=== PATIENT | female | born 1930 | race Caucasian/White ===

== ENCOUNTER 2018-04-22 13:35 | Observation (INO) ==
--- NOTE | 2018-04-22 13:52 | ERNOTE ---
Neuro HPI ER Record Presenting Symptoms: confusion Time Seen by Provider: 04/22/18 13:38 Source: patient, EMS Exam Limitations: no limitations Immunizations: IMMUNIZATION HX Immunizations Up to Date Yes History of Influenza Vaccine More Information Required Hx Pneumococcal Vaccination No Allergies/Adverse Reactions: Allergies Allergy/AdvReac Type Severity Reaction Status Date / Time Tetracyclines Allergy Unknown Verified 03/27/18 09:56 Home Medications: HOME MEDICATIONS Calcium Carbonate/Vitamin D3 [Calcium 600 + D Tablet] 1 ea PO DAILY 10/08/14 [Last Taken Unknown] Glimepiride [Amaryl] 2 mg PO BID 10/08/14 [Last Taken Unknown] Ferrous Sulfate [Iron] 325 mg PO DAILY 07/12/17 [Last Taken Unknown] Warfarin Sodium [Coumadin] 3 mg PO DAILY 07/12/17 [Last Taken Unknown] metformin 850 mg tablet 850 mg PO BID #180 tab 12/06/17 [Last Taken Unknown] Clonidine HCl [Catapres] 0.1 mg PO PRN PRN 12/15/17 [Last Taken Unknown] Diltiazem HCl [Diltiazem 12Hr ER] 120 mg PO DAILY 12/15/17 [Last Taken Unknown] lisinopril 20 mg tablet 20 mg PO DAILY 45 Days #45 tab 01/24/18 [Last Taken Unknown] aspirin 81 mg tablet,delayed release 81 mg PO DAILY 01/31/18 [Last Taken Unknown] metoprolol tartrate 50 mg tablet 50 mg PO BID 01/31/18 [Last Taken Unknown] levothyroxine 50 mcg capsule 50 mcg PO DAILY #90 cap 02/08/18 [Last Taken Unknown] rosuvastatin 5 mg tablet 5 mg PO DAILY 03/27/18 [Last Taken Unknown] alcohol swabs 1 pad TP DAILY #100 ea 03/28/18 [Last Taken Unknown] Blood Sugar Diagnostic [True Metrix Glucose Test Strip] 0 appl .ROUTE .MEDSUPPLY 04/22/18 [Last Taken Unknown] Blood-Glucose Meter [Blood Glucose Meter] 0 appl .ROUTE .MEDSUPPLY 04/22/18 [Last Taken Unknown] Lancets [Unilet Lancet] 0 appl .ROUTE .MEDSUPPLY 04/22/18 [Last Taken Unknown] - History of Present Illness Narrative: Patient is not quite certain how the life alert was triggered at her home, but EMS services showed up and found the patient to be confused. Patient is alert only to self and is not exactly clear on time, situation, although she does appear to understand that she is in the hospital. Onset: other - Unknown time of onset Severity: moderate - Character of Deficits New weakness: Absent: general (diffuse) Altered sensation: Absent: RUE, RLE, LUE, LLE, facial (rt), facial (lt) Additional Deficits: Absent: vision problems Baseline Cognition: Present: alert, oriented x 4 Baseline Gait: Present: walks w/o assistance Associated Symptoms: Denies: fever/chills, sweating Review of Systems - Review of Systems Constitutional: Present: See HPI EYE: Present: no symptoms reported ENT: Present: no symptoms reported Respiratory: Present: no symptoms reported Cardiology: Present: no symptoms reported Gastrointestinal/Abdominal: Present: no symptoms reported Genitourinary: Present: no symptoms reported Musculoskeletal: Present: no symptoms reported Skin: Present: no symptoms reported Neurological: Present: no symptoms reported Endocrine: Present: no symptoms reported Hematologic/Lymphatic: Present: no symptoms reported Psych: Present: no symptoms reported Medical History (Last Reviewed 04/22/18 @ 13:39 by Lakshmi Ferrer RN) Visual loss (Acute) Onset Date: ~04/11/12 Osteoporosis (Chronic) Onset Date: Unknown 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 Hypercholesterolemia (Acute) Onset Date: Unknown CAD (coronary artery disease) (Chronic) Onset Date: Unknown HX: intermediate accountant anticoagulant use (Acute) Onset Date: Unknown Hx of abdominal aortic aneurysm (Resolved) Onset Date: Unknown Hyperlipidemia (Chronic) Onset Date: Unknown Hypertension (Chronic) Onset Date: Unknown Diabetes (Chronic) Onset Date: Unknown Hypothyroidism Onset Date: Unknown Surgical History: Surgical History (Last Reviewed 04/22/18 @ 13:39 by Lakshmi Ferrer RN) History of angioplasty Onset Date: ~1980 History of cataract surgery Onset Date: ~2001 History of left breast biopsy Onset Date: Unknown History of total abdominal hysterectomy and bilateral salpingo-oophorectomy Onset Date: Unknown Hx of aortic aneurysm repair Onset Date: Unknown Hx of heart artery stent Onset Date: Unknown Pacemaker Onset Date: ~11/25/15 Family History: Family History (Last Reviewed 04/22/18 @ 13:39 by Lakshmi Ferrer RN) Mother AAA (abdominal aortic aneurysm) Social History: Preferred Language Gabonese Smoking Status Never smoker Abuse History No History of abuse Psych History No pertinent hx Alcohol Use none Drug Use none (Last Updated 03/27/18 @ 12:40 by Sonia Coffey MD) No Social History Section defined Physical Exam - Physical Exam General Appearance: Present: wd/wn, no apparent distress Head Exam: Present: normal inspection, no evidence of injury Eye Exam: Normal inspection: bilateral, PERRL: bilateral Ears, Nose, Throat: Present: normal ENT inspection, H, normal pharynx Neck: Present: normal inspection, nontender Respiratory: Present: no respiratory distress, normal breath sounds, no accessory muscle use, chest nontender, lungs clear Cardiovascular/Chest: Present: regular rate, rhythm, no murmur, normal peripheral pulses Gastrointestinal/Abdominal: Present: normal bowel sounds, nontender, nondistended, soft, no organomegaly Rectal Exam: Present: deferred Pelvic Exam: Present: deferred Back Exam: Present: normal inspection, normal range of motion Extremity Exam: Present: normal inspection, non-tender, no edema, normal range of motion Neurological Exam: Present: alert, normal mood/affect, disoriented to time, disoriented to situation. Absent: disoriented to person Skin Exam: Present: normal color, warm/dry Lymphatic Exam: Present: no adenopathy Progress - Results and Orders Patient's Lab Results:: I have reviewed the patient's lab results. - Vital Signs Patient's Vital Signs:: I have reviewed the patient's vital signs. Vital Signs: Vital Signs 04/22/18 13:37 Temperature 36.9 C Pulse Rate 71 Respiratory Rate 17 O2 Sat by Pulse Oximetry 97 - X-Ray X-Ray #1 X-Ray: chest Interpretation: Reviewed by me - CT/Ultrasound CT/Ultrasound Narrative: CT of the head reviewed by me - Progress/Reassessment Chief Complaint: Altered Mental Status Plan - Plan Plan: Unclear etiology for this altered mental status. It is possible that she inadvertently overdosed on her own home medications as an entire day is missing from her pillbox. Patient will be admitted to an observation bed where at least we can do an echocardiogram and carotid Doppler ultrasounds and allow these medications to wash out of her system. Departure Clinical Impression: Altered mental status Qualifiers: Altered mental status type: disorientation Qualified Code(s): R41.0 - Disorientation, unspecified CVA (cerebral vascular accident) Qualifiers: CVA mechanism: unspecified Qualified Code(s): I63.9 - Cerebral infarction, unspecified - Departure Disposition: Still a patient Condition: Fair Referrals: Sonia Coffey MD [Primary Care Provider] -
[2018-04-22 13:58] LABS: Hematocrit 34.8 % (37.0-47.0); Hemoglobin 11.6 gm/dL (12.5-16.0); Mean Cell Volume 92.6 fl (78-100); Mean Corpuscular Hemoglobin 30.9 pg (27-31); Mean Corpuscular Hgb Conc 33.3 g/dl (32-36); Mean Platelet Volume 9.1 fl (8-12.5); Neutrophil # 6.5 K/mm3 (1.3-6.0); Platelet Count 240 K/mm3 (150-450); Red Blood Count 3.76 M/mm3 (4.2-5.4); Red Cell Distribution Width 15.1 % (11.5-14.0); White Blood Count 8.1 K/mm3 (4.0-10.5)
[2018-04-22 13:59] LABS: Urine Bilirubin Negative (NEGATIVE); Urine Ketone Negative (NEGATIVE); Urine Nitrite Negative (NEGATIVE); Urine Protein 30 mg/dL (NEGATIVE); Urine Specific Gravity 1.025 SP.GR. (1.005-1.010); Urine Urobilinogen Normal (NORMAL); Urine pH 5.5 pH (5.0-7.0)
[2018-04-22 14:07] LABS: Urine Amorphous Sediment Few - 1+ (NONE-FEW); Urine Appearance Clear (CLEAR); Urine Bacteria TRACE; Urine Blood 5 /ul (NEGATIVE); Urine Color Yellow; Urine RBC 0-5 /hpf (0-5); Urine WBC None Seen /hpf (0-5)
[2018-04-22 14:10] LABS: INR 2.59 INR (0.90-1.10); Prothrombin Time (Patient) 26.1 Seconds (9.0-11.0)
[2018-04-22 14:12] LABS: Albumin * 3.7 gm/dl (3.4-5.0); Anion Gap 16.4 mmol/L (6.8-13.8); BUN/Creatinine Ratio 32.9 (9.0-21.6); Bilirubin, Total 0.5 mg/dL (0.0-1.1); Ca. Corrected For Albumin 9.5 mg/dL (8.4-10.2); Calcium * 9.6 mg/dL (7.9-10.9); Carbon Dioxide 25.4 mmol/L (24-32.6); Magnesium 1.4 mg/dL (1.2-2.8); Potassium 3.8 mmol/L (3.4-4.6)
[2018-04-22] MEDS ORDERED: CLONIDINE HCL 0.1 MG TABLET PO PRN (21:14)
[2018-04-22] MEDS: METOPROLOL TARTRATE 50 MG TABLET PO SCH (22:12)
[2018-04-22] MEDS: FERROUS SULFATE 325 MG TABLET PO SCH (23:44)
[2018-04-23 05:32] LABS: Hematocrit 35.9 % (37.0-47.0); Mean Cell Volume 92.3 fl (78-100); Mean Corpuscular Hemoglobin 30.8 pg (27-31); Mean Corpuscular Hgb Conc 33.4 g/dl (32-36); Mean Platelet Volume 9.7 fl (8-12.5); Neutrophil # 5.4 K/mm3 (1.3-6.0); Platelet Count 271 K/mm3 (150-450); Red Blood Count 3.89 M/mm3 (4.2-5.4); Red Cell Distribution Width 15.2 % (11.5-14.0); White Blood Count 7.1 K/mm3 (4.0-10.5)
[2018-04-23 05:38] LABS: Albumin * 3.6 gm/dl (3.4-5.0); Anion Gap 15.1 mmol/L (6.8-13.8); BUN/Creatinine Ratio 31.7 (9.0-21.6); Bilirubin, Total 0.6 mg/dL (0.0-1.1); Ca. Corrected For Albumin 9.3 mg/dL (8.4-10.2); Calcium * 9.3 mg/dL (7.9-10.9); Carbon Dioxide 27.4 mmol/L (24-32.6); Potassium 3.5 mmol/L (3.4-4.6); Total Protein 8.1 gm/dL (6.2-8.2)
[2018-04-23] MEDS ORDERED: LEVOTHYROXINE SODIUM 50 MCG TABLET PO SCH (07:00)
[2018-04-23] MEDS: FERROUS SULFATE 325 MG TABLET PO SCH (08:48)
[2018-04-23] MEDS: METOPROLOL TARTRATE 50 MG TABLET PO SCH (08:48)
[2018-04-23] MEDS ORDERED: LISINOPRIL 20 MG TABLET PO SCH (09:00)
[2018-04-23] MEDS ORDERED: GLIMEPIRIDE 2 MG TABLET PO SCH (09:00)
[2018-04-23] MEDS ORDERED: ASPIRIN 81 MG TABLET.DR PO SCH (09:00)
[2018-04-23] MEDS ORDERED: DILTIAZEM HCL 120 MG CAP.SR.24H PO SCH (09:00)
--- NOTE | 2018-04-23 10:17 | HP ---
Chief Complaint - Chief Complaint Date of Service: 04/22/18 Time of Service: 21:15 Chief Complaint: Altered mental status with confusion. History of Present Illness: Jamia Garza is an 87-year-old female patient of Dr. Coffey. Her son checks on her each day. He says of her medications once per week. When he came by on the afternoon of the she was confused and confabulating. He checked her medications and found that her medicines for Sunday and Sunday work already gone and he isn't sure if she took all of them or not but had her brought to the emergency room in case she did. She apparently has some underlying status of dementia. She was just acutely worse when he found her. In the emergency room the workup is essentially normal. A CAT scan of the head shows no bleeding but would've been too soon to see a fresh stroke. Her laboratory work was uneventful and there is no evidence of infection. Cause of her acute worsening of her dementia with acute confusion is not clear but is probably from overdosing on her medicines. Medical History (Last Reviewed 04/22/18 @ 15:41 by Lance Gibbs RN) Visual loss (Acute) Onset Date: ~04/11/12 Osteoporosis (Chronic) Onset Date: Unknown 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 Hypercholesterolemia (Acute) Onset Date: Unknown CAD (coronary artery disease) (Chronic) Onset Date: Unknown HX: assisted anticoagulant use (Acute) Onset Date: Unknown Hx of abdominal aortic aneurysm (Resolved) Onset Date: Unknown Hyperlipidemia (Chronic) Onset Date: Unknown Hypertension (Chronic) Onset Date: Unknown Diabetes (Chronic) Onset Date: Unknown Hypothyroidism Onset Date: Unknown Surgical History: Surgical History (Last Reviewed 04/22/18 @ 13:39 by Lakshmi Ferrer RN) History of angioplasty Onset Date: ~1980 History of cataract surgery Onset Date: ~2001 History of left breast biopsy Onset Date: Unknown History of total abdominal hysterectomy and bilateral salpingo-oophorectomy Onset Date: Unknown Hx of aortic aneurysm repair Onset Date: Unknown Hx of heart artery stent Onset Date: Unknown Pacemaker Onset Date: ~11/25/15 Family History: Family History (Last Reviewed 04/22/18 @ 15:41 by Lance Gibbs RN) Mother AAA (abdominal aortic aneurysm) Social History: Patient Lives/Resources Home Utilized Occupation none Preferred Language Swiss Do you have any anglican or No cultural preference? Smoking Status Never smoker Have you smoked in the past 12 No months Do you dip or chew tobacco No Abuse History No History of abuse Psych History No pertinent hx Alcohol Use none Drug Use none (Last Updated 03/27/18 @ 12:40 by Sonia Coffey MD) No Social History Section defined Review Of Systems (GEN) - Review of Systems Generalized/Overall Review: Present: No Symptoms Reported EENTM: Present: No Symptoms Reported Respiratory: Present: No Symptoms Reported Cardiac: Present: No Symptoms Reported Abdominal: Present: No Symptoms Reported Genitourinary: Present: No Symptoms Reported Musculoskeletal: Present: No Symptoms Reported Neurological: Present: Pre-existing Deficit - With underlying dementia, Other - Acute confusional state and confabulation. Skin: Present: No Symptoms Reported Endocrine: Present: No Symptoms Reported Misc: All systems neg except as marked Immunizations: IMMUNIZATION HX Immunizations Up to Date Yes History of Influenza Vaccine More Information Required Hx Pneumococcal Vaccination No Allergies/Adverse Reactions: Allergies Allergy/AdvReac Type Severity Reaction Status Date / Time Tetracyclines Allergy Unknown Verified 03/27/18 09:56 Home Medications: HOME MEDICATIONS Calcium Carbonate/Vitamin D3 [Calcium 600 + D Tablet] 1 ea PO DAILY 10/08/14 [Last Taken Unknown] Glimepiride [Amaryl] 2 mg PO BID 10/08/14 [Last Taken Unknown] Ferrous Sulfate [Iron] 325 mg PO DAILY 07/12/17 [Last Taken Unknown] Warfarin Sodium [Coumadin] 3 mg PO DAILY 07/12/17 [Last Taken Unknown] metformin 850 mg tablet 850 mg PO BID #180 tab 12/06/17 [Last Taken Unknown] Clonidine HCl [Catapres] 0.1 mg PO PRN PRN 12/15/17 [Last Taken Unknown] Diltiazem HCl [Diltiazem 12Hr ER] 120 mg PO DAILY 12/15/17 [Last Taken Unknown] lisinopril 20 mg tablet 20 mg PO DAILY 45 Days #45 tab 01/24/18 [Last Taken Unknown] aspirin 81 mg tablet,delayed release 81 mg PO DAILY 01/31/18 [Last Taken Unknown] metoprolol tartrate 50 mg tablet 50 mg PO BID 01/31/18 [Last Taken Unknown] levothyroxine 50 mcg capsule 50 mcg PO DAILY #90 cap 02/08/18 [Last Taken Unknown] rosuvastatin 5 mg tablet 5 mg PO DAILY 03/27/18 [Last Taken Unknown] alcohol swabs 1 pad TP DAILY #100 ea 03/28/18 [Last Taken Unknown] Blood Sugar Diagnostic [True Metrix Glucose Test Strip] 0 appl .ROUTE .MEDSUPPLY 04/22/18 [Last Taken Unknown] Blood-Glucose Meter [Blood Glucose Meter] 0 appl .ROUTE .MEDSUPPLY 04/22/18 [Last Taken Unknown] Lancets [Unilet Lancet] 0 appl .ROUTE .MEDSUPPLY 04/22/18 [Last Taken Unknown] Exam - Exam Vital Signs: Vital Signs - Last Taken Temp 36.8 C 04/23/18 07:17 Pulse 85 04/23/18 08:48 Resp 18 04/23/18 07:17 BP 142/94 H 04/23/18 08:48 Pulse Ox 97 04/23/18 07:17 Constitutional: Present: Alert, Oriented x3, Cooperative, Well developed, Well nourished, No distress ENT Exam: Present: normal ENT inspection, hearing grossly normal, pharynx normal, TMs normal Eye Exam: bilateral eye: normal inspection, PERRL, EOMI Neck: Present: non-tender, full range of motion, supple, normal inspection, trachea midline Back Exam: Present: normal inspection, no CVA tenderness, no vertebral tenderness Breasts: Present: Exam deferred Respiratory: Present: chest non-tender, lungs clear, normal breath sounds, no respiratory distress, no accessory muscle use Cardiovascular/Chest: Present: normal peripheral pulses, regular rate, rhythm, no chest tenderness, no edema, no gallop, no JVD, no murmur Peripheral Pulses: carotid (R): 2+, carotid (L): 2+, radial (R): 2+, radial (L): 2+ Abdomen: Present: Normal bowel sounds, soft, nontender, nondistended, no rebound tenderness, no hepatospenomegaly, no masses /Rectal: Present: Exam deferred Extremity: Present: normal range of motion, non-tender, normal inspection, no pedal edema, no calf tenderness, normal capillary refill Skin Exam: Present: normal color, warm/dry, no cyanosis Lymphatic: Present: no adenopathy Neurologic: Present: automatic teller machine servicer II-XII nml as tested, other - Having difficulty naming things such as months and location. However she introduced me to her son Avery without difficulty. She is not oriented to time date or location. Appearance: Present: appropriate appearance, denies illness, impaired insight, impaired recent memory. Absent: no memory impairment Eye contact: Present: cooperative, good eye contact, normal speech Thoughts: Present: no apparent hallucination Diagnostic Studies: Abnormal Lab Results 04/22/18 04/22/18 04/22/18 Range/Units 13:45 13:50 13:50 RBC 3.76 L (4.2-5.4) M/mm3 Hgb 11.6 L (12.5-16.0) gm/dL Hct 34.8 L (37.0-47.0) % RDW 15.1 H (11.5-14.0) % Neutrophils % 80.0 H (42-75.0) % Lymphocytes % 9.4 L (20-51) % Monocytes % 9.7 H (0.0-9) % Neutrophils # 6.5 H (1.3-6.0) K/mm3 Lymphocytes # 0.76 L (1.5-3.5) k/mm3 PT (9.0-11.0) Seconds INR (Anticoag Therapy) (0.90-1.10) INR Anion Gap 16.4 H (6.8-13.8) mmol/L BUN/Creatinine Ratio 32.9 H (9.0-21.6) Random Glucose 148 H (70-110) mg/dL ALT (19-67) U/L Urine Protein 30 H (NEGATIVE) mg/dL Urine Blood 5 H (NEGATIVE) /ul 04/22/18 04/23/18 04/23/18 Range/Units 13:50 05:10 05:10 RBC 3.89 L (4.2-5.4) M/mm3 Hgb 12.0 L (12.5-16.0) gm/dL Hct 35.9 L (37.0-47.0) % RDW 15.2 H (11.5-14.0) % Neutrophils % 76.0 H (42-75.0) % Lymphocytes % 13.2 L (20-51) % Monocytes % 9.4 H (0.0-9) % Neutrophils # (1.3-6.0) K/mm3 Lymphocytes # 0.94 L (1.5-3.5) k/mm3 PT 26.1 H (9.0-11.0) Seconds INR (Anticoag Therapy) 2.59 H (0.90-1.10) INR Anion Gap 15.1 H (6.8-13.8) mmol/L BUN/Creatinine Ratio 31.7 H (9.0-21.6) Random Glucose 143 H (70-110) mg/dL ALT 18 L (19-67) U/L Urine Protein (NEGATIVE) mg/dL Urine Blood (NEGATIVE) /ul Microbiology 04/22/18 13:45 Urine Culture - Preliminary Urine,Catheterized No Growth Laboratory Results WBC 7.1 K/mm3 (4.0-10.5) 04/23/18 05:10 RBC 3.89 M/mm3 (4.2-5.4) L 04/23/18 05:10 Hgb 12.0 gm/dL (12.5-16.0) L 04/23/18 05:10 Hct 35.9 % (37.0-47.0) L 04/23/18 05:10 MCV 92.3 fl (78-100) 04/23/18 05:10 MCH 30.8 pg (27-31) 04/23/18 05:10 MCHC 33.4 g/dl (32-36) 04/23/18 05:10 RDW 15.2 % (11.5-14.0) H 04/23/18 05:10 Plt Count 271 K/mm3 (150-450) 04/23/18 05:10 MPV 9.7 fl (8-12.5) 04/23/18 05:10 Immature Gran % (Auto) 0.40 % (0.001-0.429) 04/23/18 05:10 Immature Gran # (Auto) 0.03 K/mm3 (0.000-0.0310) 04/23/18 05:10 Neutrophils % 76.0 % (42-75.0) H 04/23/18 05:10 Lymphocytes % 13.2 % (20-51) L 04/23/18 05:10 Monocytes % 9.4 % (0.0-9) H 04/23/18 05:10 Eosinophils % 0.6 % (0.0-3.0) 04/23/18 05:10 Basophils % 0.4 % (0.0-1.0) 04/23/18 05:10 Nucleated RBC % 0.0 k/mm3 (0-1) 04/23/18 05:10 Neutrophils # 5.4 K/mm3 (1.3-6.0) 04/23/18 05:10 Lymphocytes # 0.94 k/mm3 (1.5-3.5) L 04/23/18 05:10 Monocytes # 0.7 k/mm3 (0.0-1.0) 04/23/18 05:10 Eosinophils # 0.0 k/mm3 (0.0-0.7) 04/23/18 05:10 Absolute Basophils 0.0 k/mm3 (0.0-0.1) 04/23/18 05:10 PT 26.1 Seconds (9.0-11.0) H 04/22/18 13:50 INR (Anticoag Therapy) 2.59 INR (0.90-1.10) H 04/22/18 13:50 Sodium 138 mmol/L (132-142) 04/23/18 05:10 Plasma Sodium 139 mmol/L (130-142) 04/23/18 05:10 Potassium 3.5 mmol/L (3.4-4.6) 04/23/18 05:10 Chloride 99 mmol/L (97-106) 04/23/18 05:10 Carbon Dioxide 27.4 mmol/L (24-32.6) 04/23/18 05:10 Anion Gap 15.1 mmol/L (6.8-13.8) H 04/23/18 05:10 BUN 19 mg/dL (3-23) 04/23/18 05:10 Creatinine 0.60 mg/dL (0.4-1.4) 04/23/18 05:10 Est GFR (Non-Af Amer) 100 mL/min (60-130) 04/23/18 05:10 BUN/Creatinine Ratio 31.7 (9.0-21.6) H 04/23/18 05:10 Random Glucose 143 mg/dL (70-110) H 04/23/18 05:10 Calcium 9.3 mg/dL (7.9-10.9) 04/23/18 05:10 Calcium Adj for Albumin 9.3 mg/dL (8.4-10.2) 04/23/18 05:10 Magnesium 1.4 mg/dL (1.2-2.8) 04/22/18 13:50 Total Bilirubin 0.6 mg/dL (0.0-1.1) 04/23/18 05:10 AST 19 U/L (0-48) 04/23/18 05:10 ALT 18 U/L (19-67) L 04/23/18 05:10 Alkaline Phosphatase 92 U/L (50-170) 04/23/18 05:10 Total Protein 8.1 gm/dL (6.2-8.2) 04/23/18 05:10 Albumin 3.6 gm/dl (3.4-5.0) 04/23/18 05:10 Urine Color Yellow 04/22/18 13:45 Urine Appearance Clear (CLEAR) 04/22/18 13:45 Urine pH 5.5 pH (5.0-7.0) 04/22/18 13:45 Ur Specific [place] 1.025 SP.GR. (1.005-1.010) 04/22/18 13:45 Urine Protein 30 mg/dL (NEGATIVE) H 04/22/18 13:45 Urine Glucose (UA) Negative mg/dL (NEGATIVE) 04/22/18 13:45 Urine Ketones Negative mg/dL (NEGATIVE) 04/22/18 13:45 Urine Blood 5 /ul (NEGATIVE) H 04/22/18 13:45 Urine Nitrate Negative (NEGATIVE) 04/22/18 13:45 Urine Bilirubin Negative mg/dl (NEGATIVE) 04/22/18 13:45 Prot Sulfosalicylic Acd 1+ mg/dL (0) 04/22/18 13:45 Urine Urobilinogen Normal EU/dl (NORMAL) 04/22/18 13:45 Ur Leukocyte Esterase Negative /ul (NEGATIVE) 04/22/18 13:45 Urine RBC 0-5 /hpf (0-5) 04/22/18 13:45 Urine WBC None seen /hpf (0-5) 04/22/18 13:45 Ur Epithelial Cells None seen /hpf (0-5) 04/22/18 13:45 Amorphous Sediment Few - 1+ (NONE-FEW) 04/22/18 13:45 Urine Bacteria Trace (NONE) 04/22/18 13:45 Urine Culture Comments Culture to follow 04/22/18 13:45 Assessment/Plan - Narrative Narrative: 1. Admit for observation and monitoring 2. Repeat lab in the morning 3. Discussed patient's living status and plans for the future with her son. - Assessment/Plan (1) Altered mental status Problem: Acute Qualifiers: Altered mental status type: disorientation Qualified Code(s): R41.0 - Disorientation, unspecified (2) Dementia Problem: Chronic Qualifiers: Dementia type: Alzheimer's disease (3) Mitral valve disorder Problem: Chronic (4) CAD (coronary artery disease) Problem: Chronic Qualifiers: Coronary Disease-Associated Artery/Lesion type: [place] artery [place] vs. transplanted heart: [place] heart Associated angina: without angina Qualified Code(s): I25.10 - Atherosclerotic heart disease of [place] coronary artery without angina pectoris
--- NOTE | 2018-04-23 12:06 | DS ---
(1) Altered mental status Problem: Acute Qualifiers: Altered mental status type: disorientation Qualified Code(s): R41.0 - Disorientation, unspecified (2) Dementia Problem: Chronic Qualifiers: Dementia type: Alzheimer's disease (3) Mitral valve disorder Problem: Chronic (4) CAD (coronary artery disease) Problem: Chronic Qualifiers: Coronary Disease-Associated Artery/Lesion type: [place] artery [place] vs. transplanted heart: [place] heart Associated angina: without angina Qualified Code(s): I25.10 - Atherosclerotic heart disease of [place] coronary artery without angina pectoris Description of Stay: Malia Garza is an 87 year old female admitted through ER because of altered mental status and acute confusional state. Her son had gone by and see her and found her in disarray. Her house is usually in very good order and everything was in disarray at home. She was confused and not making any sense in talking to him. He then checked her medication box as he prepares her medicines for her once a week and all her medicines for Sunday and Sunday were gone similarly she had taken them all. He brought her to the emergency room where she was evaluated. CT of the head showed no acute event. The laboratory work was uneventful and there is no obvious infection present. She has had a baseline of progressive dementia. Manage her personal affairs. Her son, Avery, is here this morning and we discussed her future living status. They are going to make arrangements for her to be in assisted living or higher someone to stay with her in her home. Physically, there is been no change in her condition and I see no medical reason for her to be staying in the hospital at this point. This morning on rounds she was unable to telemetry where she was or the date. She could tell me her street address including ZIP Code. She also introduced me to her son without difficulty. She seems to be having some trouble and naming objects. Procedures Performed: none Results and Findings: Pending Mircobiology Results 04/22/18 13:45 Urine,Catheterized Urine Culture - Preliminary No Growth Lab Pending Results 04/22/18 13:45: Urine Color Yellow, Urine Appearance Clear, Urine pH 5.5, Ur Specific [place] 1.025, Urine Protein 30 H, Urine Glucose (UA) Negative, Urine Ketones Negative, Urine Blood 5 H, Urine Nitrate Negative, Urine Bilirubin Negative, Prot Sulfosalicylic Acd 1+, Urine Urobilinogen Normal, Ur Leukocyte Esterase Negative, Urine RBC 0-5, Urine WBC None seen, Ur Epithelial Cells None seen, Amorphous Sediment Few - 1+, Urine Bacteria Trace, Urine Culture Comments Culture to follow 04/22/18 13:50: WBC 8.1, RBC 3.76 L, Hgb 11.6 L, Hct 34.8 L, MCV 92.6, MCH 30.9, MCHC 33.3, RDW 15.1 H, Plt Count 240, MPV 9.1, Immature Gran % (Auto) 0.40, Immature Gran # (Auto) 0.03, Neutrophils % 80.0 H, Lymphocytes % 9.4 L, Monocytes % 9.7 H, Eosinophils % 0.1, Basophils % 0.4, Nucleated RBC % 0.0, Neutrophils # 6.5 H, Lymphocytes # 0.76 L, Monocytes # 0.8, Eosinophils # 0.0, Absolute Basophils 0.0 04/22/18 13:50: Sodium 136, Plasma Sodium 137, Potassium 3.8, Chloride 98, Carbon Dioxide 25.4, Anion Gap 16.4 H, BUN 23, Creatinine 0.70, Est GFR (Non-Af Amer) 84, BUN/Creatinine Ratio 32.9 H, Random Glucose 148 H, Calcium 9.6, Calcium Adj for Albumin 9.5, Magnesium 1.4, Total Bilirubin 0.5, AST 18, ALT 19, Alkaline Phosphatase 89, Total Protein 8.0, Albumin 3.7 04/22/18 13:50: PT 26.1 H, INR (Anticoag Therapy) 2.59 H 04/23/18 05:10: WBC 7.1, RBC 3.89 L, Hgb 12.0 L, Hct 35.9 L, MCV 92.3, MCH 30.8, MCHC 33.4, RDW 15.2 H, Plt Count 271, MPV 9.7, Immature Gran % (Auto) 0.40, Immature Gran # (Auto) 0.03, Neutrophils % 76.0 H, Lymphocytes % 13.2 L, Monocytes % 9.4 H, Eosinophils % 0.6, Basophils % 0.4, Nucleated RBC % 0.0, Neutrophils # 5.4, Lymphocytes # 0.94 L, Monocytes # 0.7, Eosinophils # 0.0, Absolute Basophils 0.0 04/23/18 05:10: Sodium 138, Plasma Sodium 139, Potassium 3.5, Chloride 99, Carbon Dioxide 27.4, Anion Gap 15.1 H, BUN 19, Creatinine 0.60, Est GFR (Non-Af Amer) 100, BUN/Creatinine Ratio 31.7 H, Random Glucose 143 H, Calcium 9.3, Calcium Adj for Albumin 9.3, Total Bilirubin 0.6, AST 19, ALT 18 L, Alkaline Phosphatase 92, Total Protein 8.1, Albumin 3.6 Discharge Location: Home - she is going home with family and initially. Her 2 sons will visit the assisted living facilities and make a decision on her placement. They intend to hire temporary help at home initially. Disposition: Home self-care Condition: Fair Discharge Activity: Activity as tolerated Discharge Diet: General/regular food Referrals: Sonia Coffey MD [Primary Care Provider] - Additional Patient Instructions (free text): -Please make TCM appointment unless [facility] discharge. Thank you! Grazyna @ [phone]. Complete Home Medications List: Complete Home Medication List: Calcium Carbonate/Vitamin D3 [Calcium 600 + D Tablet] 1 ea PO DAILY 10/08/14 Glimepiride [Amaryl] 2 mg PO BID 10/08/14 Ferrous Sulfate [Iron] 325 mg PO DAILY 07/12/17 Warfarin Sodium [Coumadin] 3 mg PO DAILY 07/12/17 metformin 850 mg tablet 850 mg PO BID #180 tab 12/06/17 Clonidine HCl [Catapres] 0.1 mg PO PRN PRN 12/15/17 Diltiazem HCl [Diltiazem 12Hr ER] 120 mg PO DAILY 12/15/17 lisinopril 20 mg tablet 20 mg PO DAILY 45 Days #45 tab 01/24/18 aspirin 81 mg tablet,delayed release 81 mg PO DAILY 01/31/18 metoprolol tartrate 50 mg tablet 50 mg PO BID 01/31/18 levothyroxine 50 mcg capsule 50 mcg PO DAILY #90 cap 02/08/18 rosuvastatin 5 mg tablet 5 mg PO DAILY 03/27/18 alcohol swabs 1 pad TP DAILY #100 ea 03/28/18 Blood Sugar Diagnostic [True Metrix Glucose Test Strip] 0 appl .ROUTE .MEDSUPPLY 04/22/18 Blood-Glucose Meter [Blood Glucose Meter] 0 appl .ROUTE .MEDSUPPLY 04/22/18 Lancets [Unilet Lancet] 0 appl .ROUTE .MEDSUPPLY 04/22/18
[2018-04-23 14:44] VITALS: BP 166/95
[2018-04-23] MEDS ORDERED: WARFARIN SODIUM 3 MG TABLET PO SCH (17:00)
== END 2018-04-23 14:47 | disposition home or self-care (01) ==
LOC: ER 13:35 → MS 13:35
PROVIDERS: ADMIT Family Medicine; ATTEND Family Medicine
DX: R41.82 Altered mental status, unspecified; I25.10 Atherosclerotic heart disease of native coronary artery without angina pectoris; F03.90 Unspecified dementia, unspecified severity, without behavioral disturbance, psychotic disturbance, mood disturbance, and anxiety; I05.9 Rheumatic mitral valve disease, unspecified; Z79.01 Long term (current) use of anticoagulants
CPT/HCPCS: 36415; 70450; 71010; 71045; 80053; 81001; 83735; 85025; 85610; 87086; 93005; 99285; G0378